=== PATIENT | female | born 1945 | race Caucasian/White ===

== ENCOUNTER → 2021-10-14 | Outpatient (CLI) | payer OTHER | LOC: COL.RAD 11:06 → EDBD 11:15 | DX: M19.011 Primary osteoarthritis, right shoulder (principal); M67.811 Other specified disorders of synovium, right shoulder; E04.1 Nontoxic single thyroid nodule | CPT/HCPCS: A9575 ==

== ENCOUNTER → 2022-02-19 | Outpatient (RCR) | payer OTHER | END | disposition home or self-care (01) | LOC: COL.CR → COL.LAB 11:06 → COL.CR 15:29 | DX: Z48.812 Encounter for surgical aftercare following surgery on the circulatory system (principal); Z98.61 Coronary angioplasty status ==

== ENCOUNTER 2022-04-11 13:31 | Outpatient (RCR) | payer OTHER | END 2022-04-21 | disposition home or self-care (01) | LOC: COL.CR | DX: Z48.812 Encounter for surgical aftercare following surgery on the circulatory system (principal); Z98.61 Coronary angioplasty status ==